=== PATIENT | male | born 1995 | race Two or more races ===

== ENCOUNTER 2019-01-04 22:13 | Emergency (ER) | payer SELFPAY ==
[~2019-01-04] VITALS: Ht 188 cm; Wt 115.7 kg
[2019-01-04 22:19] VITALS: BP 155/109
[2019-01-04] MEDS ORDERED: SODIUM CHLORIDE 0.9% 1,000 ML IV ONE (23:46)
[2019-01-05] MEDS ORDERED: ACETAMINOPHEN 500 MG TAB PO ONE
[2019-01-05] MEDS ORDERED: NEOMYCIN-BACITRACIN-POLYM 15GM TOP OINT TOP SCH
== END 2019-01-05 00:14 | disposition left against medical advice (07) ==
LOC: ER 22:14
DX: S00.03XA Contusion of scalp, initial encounter (principal); E11.9 Type 2 diabetes mellitus without complications; I10 Essential (primary) hypertension; Z53.29 Procedure and treatment not carried out because of patient's decision for other reasons; V43.53XA Car driver injured in collision with pick-up truck in traffic accident, initial encounter; Y93.89 Activity, other specified; Y99.8 Other external cause status; Y92.410 Unspecified street and highway as the place of occurrence of the external cause
CPT/HCPCS: 70450; 70486; 72125; 94761